=== PATIENT | female | born 1995 | race Caucasian/White ===

== ENCOUNTER 2018-02-19 08:51 | Emergency (ER) | payer OTHER ==
[2018-02-19 10:25] LABS: AMORPHOUS SEDIMENT RFX SMALL (NEGATIVE); BASO % 0.4 % (0.0-1.0); EOS # 0.3 10^3/uL (0.0-0.50); EOS % 3.1 % (0.0-3.0); HEMATOCRIT 35.2 % (36.0-47.0); HEMOGLOBIN 12.4 g/dl (12.0-15.5); IMMATURE GRANULOCYTE % 0.7 % (0-3.0); KETONE, URINE AUTO RFX NEGATIVE (NEGATIVE); LYMPH # 1.7 10^3/uL (1.5-6.5); LYMPH % 18.2 % (24.0-44.0); MEAN CORPUSCULAR HEMOGLOBIN 31.1 pg (27.0-33.0); MEAN CORPUSCULAR HGB CONC 35.2 g/dl (32.0-36.5); MEAN CORPUSCULAR VOLUME 88.2 fl (80.0-96.0); MONO # 0.5 10^3/uL (0.0-0.8); MONO % 5.3 % (0.0-5.0); MUCUS, URINE RFX LARGE (NEGATIVE); NEUTROPHILS # 6.9 10^3/uL (1.8-7.7); NEUTROPHILS % 72.3 % (36.0-66.0); NITRITE, URINE AUTO RFX NEGATIVE (NEGATIVE); PLATELET COUNT, AUTOMATED 265 10^3/uL (150-450); RBC, URINE AUTO RFX 4 /HPF (0-3); RED BLOOD COUNT 3.99 10^6/uL (4.00-5.40); RED CELL DISTRIBUTION WIDTH 13.8 % (11.5-14.5); SPECIFIC GRAVITY UR AUTO RFX 1.027 (1.002-1.035); SQUAM EPITHELIAL CELL UR AURFX 2 /HPF (0-6); WBC, URINE AUTO RFX 4 /HPF (0-3); WHITE BLOOD COUNT 9.5 10^3/uL (4.0-10.0)
[2018-02-19 10:26] LABS: LEUKOCYTE ESTERASE UR AUTO RFX TRACE (NEGATIVE)
[2018-02-19] MEDS: NS 1,000 ML IV (10:30)
== END 2018-02-19 11:22 | disposition home or self-care (01) ==
LOC: M ED 08:51
DX: O23.32 Infections of other parts of urinary tract in pregnancy, second trimester (principal); O99.512 Diseases of the respiratory system complicating pregnancy, second trimester; J45.909 Unspecified asthma, uncomplicated; Z3A.16 16 weeks gestation of pregnancy; Z88.0 Allergy status to penicillin; Z88.8 Allergy status to other drugs, medicaments and biological substances
CPT/HCPCS: 93976

== ENCOUNTER 2018-04-26 22:37 | Outpatient (CLI) | payer OTHER ==
[~2018-04-26] VITALS: Ht 160 cm; Wt 89.1 kg
[~2018-04-26 22:37] MED LIST: IRON27TA2 PO; MACR100C43 PO
[2018-04-27 00:19] LABS: APPEARANCE, URINE HAZY (CLEAR); BACTERIA, URINE AUTO 1+ (NEGATIVE); BILIRUBIN, URINE AUTO NEGATIVE (NEGATIVE); BLOOD, URINE BLOOD NEGATIVE (NEGATIVE); CALCIUM OXALATE CRYSTALS SMALL; COLOR, URINE YELLOW (YELLOW); GLUCOSE, URINE (UA) AUTO NEGATIVE (NEGATIVE); KETONE, URINE AUTO NEGATIVE (NEGATIVE); LEUKOCYTE ESTERASE, URINE AUTO NEGATIVE (NEGATIVE); MUCUS, URINE SMALL (NEGATIVE); NITRITE, URINE AUTO NEGATIVE (NEGATIVE); PROTEIN, URINE AUTO NEGATIVE (NEGATIVE); RBC, URINE AUTO 2 /HPF (0-3); SQUAMOUS EPITHELIAL CELL UR AU 1 /HPF (0-6); WBC, URINE AUTO 2 /HPF (0-3)
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
== END 2018-04-27 00:48 | disposition home or self-care (01) ==
LOC: M LDO 22:37
PROVIDERS: ATTEND Obstetrics & Gynecology
DX: O26.852 Spotting complicating pregnancy, second trimester (principal); W50.1XXA Accidental kick by another person, initial encounter; Z3A.25 25 weeks gestation of pregnancy; Y99.8 Other external cause status
CPT/HCPCS: 59025; 81001; 87086; G0378; G0463

== ENCOUNTER 2018-07-06 21:04 | Outpatient (CLI) | payer OTHER ==
[~2018-07-06] VITALS: Ht 160 cm; Wt 90.9 kg
[2018-07-06] MEDS ORDERED: PRENTAB9 PO (21:35)
[2018-07-06 21:38] VITALS: BP 118/70
--- NOTE | 2018-07-06 23:06 | IPNPDOC ---
Text Note Date of Service The patient was seen on 07/06/18. NOTE Triage Note Griselda is a 22yo with SIUP at approx 35wk by 16wk u/s who presents tonight for back/pelvic/upper leg pain that she states has been worsening over the last few weeks. She notes that lifting her 1 year old child exacerbates the discomfort and sometimes the pain is so severe that she has difficulty walking. No trauma. She has not taken anything for pain since tylenol "causes swelling". She notes that her mother is due to return to her home soon, so she won't have as much assistance with childcare, and is active duty- they share a car. She speculates that bedrest is the solution to her discomfort. Otherwise she f eels baby moving well and has had no ctx/LOF/vaginal bleeding. No f/c/n/v/SOB/CP. PMHx/ course significant for: hx of x2 (also one , patient is planning for TOLAC), hx of a PPH w/transfusion, hx PPD, hx of GHTN in prior , late entry to care/poor care due to non-compliance, anemia taking iron, obesity (starting BMI 31) Vitals wnl, afebrile General: WDWN, obese female in NAD, resting in bed comfortably Abdomen: soft, gravid, NTTP, no rebound/guarding Pain with palpation over center of pubic bone but no crepitus or palpable abnormality, no CVAT Extremities: no edema of BLE NST reactive with +accels, mod pedro pablo, no decels [place]: no ctx Assessment: Griselda is a 22yo with SIUP at approx 35wk with back/pelvic/upper leg pain related to normal discomforts of , 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 Reassuring status with benign exam and normal vitals. Plan: -Discussed these discomforts of have no cure other than eventual delivery in a month. Recommended warm baths/showers, back massage, yoga/stretching, avoid movements that exacerbate discomfort -Instructed patient to keep visit next week at 36wk -Continue to hydrate well -Return precautions discussed -Safe for discharge home Dr. Ilsa Garza MD A-FIB/MIGUEL A-FIB History Current/History of A-Fib/PAF?: No Current Oral Anticoagulant The: No VS,Fishbone, I+O VS, Fishbone, I+O Vital Signs Date Time Temp Pulse Resp B/P (MAP) Pulse Ox O2 Delivery O2 Flow Rate FiO2 07/06/18 21:38 97.4 114 18 118/70 (86) Ilsa Garza MD Jul 06, 2018 23:06
== END 2018-07-06 22:35 | disposition home or self-care (01) ==
LOC: M LDO 21:04
PROVIDERS: ATTEND Advanced Practice Midwife
DX: O26.893 Other specified pregnancy related conditions, third trimester (principal); Z3A.35 35 weeks gestation of pregnancy
CPT/HCPCS: 59025; G0378; G0463

== ENCOUNTER 2018-08-01 02:24 | Outpatient (CLI) | payer OTHER ==
[~2018-08-01] VITALS: Ht 160 cm; Wt 92.3 kg
[~2018-08-01 02:24] MED LIST changes: +PRENTAB9 PO
[2018-08-01 02:44] VITALS: BP 107/63
--- NOTE | 2018-08-01 09:14 | HPE ---
DATE OF ADMISSION: 08/01/2018 23-year-old, 5, para 3, abortio 1, last menstrual period (LMP) 11/02/2017, expected date of confinement (EDC) 08/09/2018 at 39 and 1 weeks of gestation, history of low back pain, seen previously for the same complaint on 07/06/2018. No vaginal bleeding. No loss. No contractions. Risk factors is she has a short interval gestation, previous section, successful vaginal after (), gestational hypertension, late entry to care, and ongoing issues with depression. Past History: 12/27/2011: 40 weeks, primary section, failure to dilate, gestational hypertension, hemorrhage, male, 8 pounds 7 ounces. 06/2013: 40 week, spontaneous vaginal delivery, female, 6 pounds 7 ounces. 2016: 6 weeks spontaneous . 07/2017: 40 week and 4 days, scheduled repeat section, male, 9 pounds. Labs: A+. HIV negative. Hepatitis negative. RPR negative. Rubella immune. Varicella equivocal. Urine negative. Gonorrhea and chlamydia negative. 1-hour glucose was 101. GBS was negative. Blood pressure is 107/63, respirations are 18, pulse 106, temperature 98.4. Urine os 1.010, pH 7, +1 leukocytes, rest is negative. She presently has a category one strip with no evidence of contractions, accelerations are noted, and moderate variability. She has low back pain similar to what she had before. We recommended some of the similar options that she had before - back massage, heat, yoga exercise, stretching exercises, positional change, and this will probably resolve after she delivers. The other question she was having is whether not she could be induced and definitely no induction was indicated and she was thinking of having elective repeat section. She has an appointment on Thursday with the provider to discuss that issue with them. In summary, we have a term gestation with low back pain similar to episodic issues before, positional change, undelivered, discharged, precautions given, and could return at anytime.
--- NOTE | 2018-08-03 18:56 | HPE ---
DATE OF ADMISSION: 08/06/2018 This lady is a 23-year-old 5, para 3, abortio 1. Last period was 11/02/2017, estimated date of delivery (EDC) is 08/09/2018 at 39 and 5 weeks of gestation who is having a history of chronic low back pain, previously the same complaint on previous admission. No vaginal bleeding, vaginal loss or contractions. She is booked for an elective repeat section on August 06, 2018. Her risk factors are she has had two previous sections, short interval gestation. The last section was July 24, 2017. She has a history of gestational hypertension, late entry to care, noncompliant care and a history of hemorrhage. PAST HISTORY: 12/27/2011 at 40 weeks had a primary section for failure to dilate with gestational hypertension, hemorrhage, live male infant 8 pounds 7 ounces. In 2013 at 40 weeks spontaneous vaginal delivery successful vaginal after () of a female 6 pounds 7 ounces. 2015 at 6 weeks had a spontaneous . July 24, 2017 less than a year ago at 40 weeks 4 days had scheduled repeat section because of macrosomia of a male 9 pounds. LABS: A+, HIV negative, hep negative, RPR negative, rubella immune. Varicella immune. Urine negative. Gonorrhea and chlamydia negative. 1-hour glucose was 101 and GBS was negative. PHYSICAL EXAMINATION: On examination today her blood pressure is 117/56, respirations are 18, pulse is 80. She has presently a category one strip with no evidence of contractions, moderate variability and normal baseline. The rest of the examination is unremarkable. She is normocephalic, atraumatic. Neck: Full range of motion. Pupils equal and reactive to light. Distal pulses symmetric. No evidence of deep venous thrombosis (DVT), pulmonary embolism (PE) or superficial phlebitis. Chest is clear bilaterally to bases. No wheezes or rhonchi. No CVA tenderness. Abdomen: Soft. Four quadrant bowel sounds are noted. Appropriate symphysis fundus height. She has a scar is noted. position is vertex. She has no rashes, lesions or pruritus. No arthralgia or myalgia. No complaint of joint pain. No complaint of cough, wheeze, shortness of breath or dyspnea on exertion. No infections. No bruising. No bleeding. Neuro complete. No incontinency, urgency or frequency. No nausea, vomiting, diarrhea or constipation. No diabetic issues. 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 No abnormal Pap smears. MEDICAL HISTORY: Unremarkable except for gestational hypertension. PAST SURGICAL HISTORY: section times two. FAMILY HISTORY: Noncontributory. She does not smoke, drink or abuse drugs. She is to a soldier. No domestic violence. ALLERGIES: She has multiple allergies specifically to TYLENOL, ASPIRIN and PENICILLIN which gives her hives and MUSHROOMS and ALMONDS which gives her anaphylaxis. Presently she is only taking vitamins. We discussed the risks and benefits of repeat section including, but not limited to hemorrhage, infection, perforation of organs, , reoperation, remote possibility of blood transfusion, remote possibility of hysterectomy, remote possibility of laceration and/or admission to NICU for reasons such as hypoglycemia or transition. The patient was interested in having a repeat section as she did have a short interval of less than 1 year for repeat section which would possibly put her at risk of rupture of the uterus with trial of labor after (TOLAC) or is higher. Also it would not be a prudent move to induce the lady who has had a previous section less than 1 year ago due to the higher risk of rupture. The patient and both expressed understanding. A 40 minute discussion and evaluation, examination and preop signature. The patient is comfortable with decision. All questions were answered. MELODY
== END 2018-08-01 04:00 | disposition home or self-care (01) ==
LOC: M LDO 02:24
PROVIDERS: ATTEND Obstetrics & Gynecology
DX: O26.893 Other specified pregnancy related conditions, third trimester (principal); M54.5 Low back pain; Z3A.39 39 weeks gestation of pregnancy
CPT/HCPCS: 59025; G0378; G0463

== ENCOUNTER 2018-08-06 04:41 | Inpatient (IN) | payer OTHER ==
[~2018-08-06] VITALS: Ht 160 cm; Wt 92.2 kg
[2018-08-06] VITALS (9 sets, daily range): BP systolic 95–111; BP diastolic 49–66
[2018-08-06] MEDS ORDERED: LR 1,000 ML IV ONE (05:15)
[2018-08-06] MEDS ORDERED: AZITHROMYCIN INJ 500 MG, VIAL MATE ADAPTER 1 EACH in D5W 250 ML IV ONE (05:30)
[2018-08-06] MEDS ORDERED: BUPIVACAINE HCL 0.25% 10 ML VIAL INFIL ONE (05:30)
[2018-08-06] MEDS ORDERED: CLINDAMYCIN 900 MG in APPROPRIATE DILUENT 1 EA IV ONE (05:30)
[2018-08-06] MEDS ORDERED: BICITRA 30ML SOLN UDC PO ONE (05:30)
[2018-08-06 05:53] LABS: MEAN CORPUSCULAR HEMOGLOBIN 27.9 pg (27.0-33.0); MEAN CORPUSCULAR HGB CONC 32.3 g/dl (32.0-36.5); MEAN CORPUSCULAR VOLUME 86.6 fl (80.0-96.0); PLATELET COUNT, AUTOMATED 273 10^3/uL (150-450); RED BLOOD COUNT 3.58 10^6/uL (4.00-5.40); WHITE BLOOD COUNT 7.5 10^3/uL (4.0-10.0)
[2018-08-06] MEDS ORDERED: LR 1,000 ML IV SCH ×3 (06:00→10:15)
[2018-08-06] MEDS ORDERED: OXYTOCIN INJ 10 UNITS/ML VIAL (J2590) As Ordered ONE (07:33)
[2018-08-06] MEDS ORDERED: METOCLOPRAMIDE INJ 10MG/2ML VIAL (J2765) As Ordered ONE (07:33)
[2018-08-06] MEDS ORDERED: ONDANSETRON 4MG/2ML VIAL (J2405) As Ordered ONE (07:33)
[2018-08-06] MEDS ORDERED: MORPHINE PRES-FREE INJ 10 MG/10 ML VIAL (J2274) As Ordered ONE (07:34)
[2018-08-06] MEDS ORDERED: METOCLOPRAMIDE INJ 10MG/2ML VIAL (J2765) IV PRN ×2 (08:00→10:15)
[2018-08-06] MEDS ORDERED: ONDANSETRON 4MG/2ML VIAL (J2405) IV PRN ×2 (08:00→10:15)
[2018-08-06] MEDS ORDERED: diphenhydrAMINE INJ 50MG/ML VIAL (J1200) IV PRN (08:00)
[2018-08-06] MEDS ORDERED: NALOXONE INJ 0.4 MG/1 ML VIAL (J2310) IV PRN ×2 (08:00)
[2018-08-06] MEDS ORDERED: NALBUPHINE HCL 10 MG/ML AMP (J2300) IV PRN (08:00)
[2018-08-06] MEDS: PRENATAL VITAMINS CHEWABLE TABLET PO SCH (09:00)
[2018-08-06 09:02] LABS: CORD GAS ABE A -5.5; CORD GAS ABE V -4.6; CORD GAS HCO3 A 23.5 MEQ/L; CORD GAS HCO3 V 22.7 MEQ/L; CORD GAS O2 SAT A 51.2 %; CORD GAS O2 SAT V 32.8 %; CORD GAS PCO2 V 50.1 mmHg; CORD GAS PH A 7.211 UNITS; CORD GAS PH V 7.274 UNITS; CORD GAS PO2 A 25.5 mmHg; CORD GAS PO2 V 16.7 mmHg; CORD GAS SBC A 18.9 MEQ/L; CORD GAS SBC V 19.1 MEQ/L; CORD GAS TCO2 A 25.4 MEQ/L; CORD GAS TCO2 V 24.2 MEQ/L
[2018-08-06] MEDS ORDERED: OXYTOCIN DRIP 30 UNITS in APPROPRIATE DILUENT 1 EA IV SCH (09:35)
[2018-08-06] MEDS ORDERED: OXYTOCIN INJ 10 UNITS/ML VIAL (J2590) IV ONE (09:45)
[2018-08-06] MEDS ORDERED: DOCUSATE SODIUM 100 MG CAP PO PRN (09:45)
[2018-08-06] MEDS ORDERED: METHYLERGONOVINE MALEATE 0.2 MG TAB PO PRN (09:45)
[2018-08-06] MEDS ORDERED: ANUSOL HC CREAM 30GM TOP PRN (09:45)
[2018-08-06] MEDS ORDERED: MEASLES,MUMPS,RUBELLA VACCINE INJ (MMR-II) (90707) SC SCH (09:45)
[2018-08-06] MEDS ORDERED: RHOGAM 300 MCG (1500 IU) INJ (J2790) IM SCH (09:45)
[2018-08-06] MEDS ORDERED: MOM 30ML SUSPENSION UDC PO PRN (09:45)
[2018-08-06] MEDS ORDERED: PERCOCET 5MG/325MG TAB PO PRN ×4 (09:45→10:30)
[2018-08-06] MEDS ORDERED: OXYTOCIN 30 UNITS IN 0.9% NaCl 500ML IV BAG (J2590) As Ordered ONE (09:59)
[2018-08-06] MEDS ORDERED: MEPERIDINE INJ 25 MG/ML VIAL (J2175) IV PRN (10:15)
[2018-08-06] MEDS ORDERED: fentaNYL 100 MCG/2 ML INJECTION (J3010) IV PRN (10:15)
--- NOTE | 2018-08-06 12:00 | IPN ---
DATE: 08/06/2018 This patient requested permanent sterilization with satisfied parity as the reason. We discussed other options besides permanent sterilization including Depo-Provera, Mirena IUCD, copper IUCD, control pills, Nexplanon, condoms, foam or a combination there of. The patient was adamant that she definitely does want to have any more children and therefore we discussed the risks and benefits of tubal ligation at section, including failure rate which less than 1% which may result in an ectopic or an intrauterine . Also, the side effects being post tubal ligation syndrome which would affect her periods, increasing dysmenorrhea or menorrhagia. The patient and expressed understanding of the above. Again, declined alternative methods. The patient signed the consent form.
[2018-08-06] MEDS: KETOROLAC 30 MG/ML VIAL (J1885) IV SCH ×3 (12:31→23:34)
[2018-08-06] MEDS ORDERED: METOCLOPRAMIDE INJ 10MG/2ML VIAL (J2765) IV ONE (15:00)
[2018-08-06] MEDS: LR 1,000 ML IV SCH ×2 (15:13→23:23)
[2018-08-07 02:05] VITALS: BP 125/58
[2018-08-07] MEDS: KETOROLAC 30 MG/ML VIAL (J1885) IV SCH (05:43)
[2018-08-07 06:23] VITALS: BP 112/57
[2018-08-07] MEDS: LR 1,000 ML IV SCH (06:48)
[2018-08-07 07:01] LABS: HEMATOCRIT 23.4 % (36.0-47.0); MEAN CORPUSCULAR HEMOGLOBIN 26.3 pg (27.0-33.0); MEAN CORPUSCULAR HGB CONC 30.3 g/dl (32.0-36.5); MEAN CORPUSCULAR VOLUME 86.7 fl (80.0-96.0); PLATELET COUNT, AUTOMATED 172 10^3/uL (150-450); WHITE BLOOD COUNT 8.5 10^3/uL (4.0-10.0)
[2018-08-07 07:16] LABS: HEMOGLOBIN 7.1 g/dl (12.0-15.5)
[2018-08-07] MEDS ORDERED: PRENATAL VITAMINS CHEWABLE TABLET PO SCH ×2 (09:00)
[2018-08-07] MEDS: PRENATAL VITAMINS CHEWABLE TABLET PO SCH (09:00)
[2018-08-07 10:00] VITALS: BP 112/56
[2018-08-07 14:00] VITALS: BP 129/58
[2018-08-07] MEDS: IBUPROFEN 800 MG TAB PO SCH ×2 (14:21→21:22)
--- NOTE | 2018-08-07 15:33 | IPN ---
DATE: 08/06/2018 This lady is a 20-year-old 5, now para 4, who was admitted for repeat section. She had a repeat section of a live- female , 8 pounds 1 ounce, 3660 grams, scores of 7 and 9 at one and five minutes, respectively. Arterial pH 7.21, base excess -5.5, venous pH 7.27, base excess -4.6. On her first day we discussed phlebitis, cystitis, mastitis, metritis, cellulitis, diet, exercise, pain management, perineal, breast, and wound care. Presently she is struggling with breast-feeding; however, she is going to get some assistance with a consultant in ergonomics and safety. She is voiding well, passing gas. Her blood pressure today is 112/57, respirations are 16, pulse 74, and temperature 97.2. She had initial episode of chest pain, which we laid down for anxiety, as her oxygen saturations were normal, and her vital signs were stable. Her admitting hemoglobin was 10.0, hematocrit 31.0, platelets are 273. day #1 hemoglobin is pending. The rest examination unremarkable. Normocephalic, atraumatic. Neck: Full range of motion. Pupils equal and reactive to light. Distal pulses symmetric. No evidence of deep vein thrombosis (DVT), pulmonary embolism (PE), or superficial phlebitis. Chest is clear bilaterally to bases. No wheezes or rhonchi. No costovertebral angle (CVA) tenderness. Abdomen: Soft uterus 2 below. Lochia is moderate. Four-quadrant bowel sounds. Incision is clean and dry. PLAN OF MANAGEMENT: Send her home with medications tomorrow. A 2-week incision check, 6-week check.
[2018-08-07 18:00] VITALS: BP 114/53
[2018-08-07 21:41] VITALS: BP 115/59
[2018-08-08 02:01] VITALS: BP 122/73
[2018-08-08] MEDS: IBUPROFEN 800 MG TAB PO SCH ×2 (05:51→14:18)
[2018-08-08 05:59] VITALS: BP 115/56
--- NOTE | 2018-08-08 06:35 | DS.PDOC ---
Discharge Summary General Date of Admission August 06, 2018 at 04:41 Date of Discharge Aug 08, 2018 Discharge Summary COMPLICATIONS/CHIEF COMPLAINT: History Prior . HOSPITAL COURSE: Ms. Veliz is a 23 yo G5 now P3 who was admitted on 06Aug2018 for a planned RLTCS. The procedure was uncomplicated. Her course has been unremarkable. On her day of discharge she met all appropriate discharge criteria. She was ambulating, voiding, tolerating a regular diet, had minimal lochia and her pain was well controlled with PO medications. DISCHARGE MEDICATIONS: Please see below. ALLERGIES: Please see below. PHYSICAL EXAMINATION ON DISCHARGE: VITAL SIGNS: Please see below. GENERAL: AAOX3, sitting up in bed, NAD ABDOMINAL EXAMINATION: Fundus firm at U-2. No fundal tenderness. Incision clean/dry/intact. EXTREMITIES: No edema PSYCHIATRIC EXAMINATION: Affect appropriate. LABORATORY DATA: Please see below. ACTIVITY: Pelvic rest for 6 weeks. No heavy lifting. DIET: Regular DISCHARGE PLAN: Discharge home DISPOSITION: Discharge home on 08Aug2018. DISCHARGE INSTRUCTIONS: 1. pelvic rest for 6 weeks. 2. no heavy lifting for 6 weeks ITEMS TO FOLLOWUP ON ON OUTPATIENT: 1. Incision check in 2 weeks. 2. visit in 6 weeks DISCHARGE CONDITION: Stable. TIME SPENT ON DISCHARGE: Greater than 20 minutes. Isaías Adhikari DO Vital Signs/I&Os Vital Signs Date Time Temp Pulse Resp B/P (MAP) Pulse Ox O2 Delivery O2 Flow Rate FiO2 08/08/18 05:59 97.4 85 17 115/56 (75) 98 Discharge Medications Scheduled No.137/Iron/Folic Acd ( Vitamin Tablet) 1 Each Tablet, 1 TAB PO DAILY, (Reported) Allergies Coded Allergies: almond (Verified Allergy, Severe, THROAT SWELLING, 08/06/18) bee pollen (Verified Allergy, Severe, SWELLING, 08/06/18) mushroom (Verified Allergy, Severe, THROAT SWELLING, 08/06/18) acetaminophen (Verified Allergy, Intermediate, HIVES - CAN TAKE PERCOCET, 08/06/18) Penicillins (Verified Allergy, Mild, BECOMES RED, 08/04/18) aspirin (Verified Allergy, Unknown, HIVES - CAN TAKE TORADOL AND IBUPROFEN, 08/06/18) ISAÍAS ADHIKARI DO Aug 08, 2018 06:34
[2018-08-08] MEDS ORDERED: IBUP80TA PO (06:38)
[2018-08-08] MEDS ORDERED: PERCOCET PO (06:38)
[2018-08-08] MEDS: PRENATAL VITAMINS CHEWABLE TABLET PO SCH (08:33)
[2018-08-08] MEDS ORDERED: ANUS2.5C2 TOP (10:24)
[2018-08-08] MEDS ORDERED: COLA100C5 PO (10:24)
== END 2018-08-08 14:25 | disposition home or self-care (01) | DRG 785 ==
LOC: M LDI 04:41 → M OBS 11:01
PROVIDERS: ADMIT Obstetrics & Gynecology; ATTEND Obstetrics & Gynecology
PROC: 0UL70DZ Occlusion of Bilateral Fallopian Tubes with Intraluminal Device, Open Approach (ICD-10-PCS; 2018-08-06)
PROC: 10D00Z1 Extraction of Products of Conception, Low, Open Approach (ICD-10-PCS; principal; 2018-08-06 07:30)
DX: O34.211 Maternal care for low transverse scar from previous cesarean delivery (principal); Z37.0 Single live birth; Z3A.39 39 weeks gestation of pregnancy; Z30.2 Encounter for sterilization

== ENCOUNTER 2018-09-21 14:02 | Emergency (ER) | payer OTHER ==
[~2018-09-21] VITALS: Ht 160 cm; Wt 82.9 kg
[~2018-09-21 14:02] MED LIST changes: +ANUS2.5C2 TOP; +COLA100C5 PO; +IBUP80TA PO; +PERCOCET PO
[2018-09-21] MEDS ORDERED: IRON240T PO (14:27)
[2018-09-21 15:30] VITALS: BP 108/62
== END 2018-09-21 15:37 | disposition home or self-care (01) ==
LOC: M ED 14:02
DX: F43.10 Post-traumatic stress disorder, unspecified (principal); Z62.810 Personal history of physical and sexual abuse in childhood; F99 Mental disorder, not otherwise specified; J45.909 Unspecified asthma, uncomplicated; Z88.0 Allergy status to penicillin; Z88.6 Allergy status to analgesic agent; Z91.030 Bee allergy status; Z91.018 Allergy to other foods

== ENCOUNTER 2020-02-06 10:56 | Emergency (ER) | payer OTHER ==
[~2020-02-06] VITALS: Ht 160 cm; Wt 89.4 kg
[~2020-02-06 10:56] MED LIST changes: +IRON240T PO
[2020-02-06] MEDS ORDERED: VITA250T4 PO (11:18)
[2020-02-06 12:09] LABS: BASO # 0.1 10^3/uL (0.0-0.2); BASO % 0.7 % (0.0-1.0); EOS # 0.9 10^3/uL (0.0-0.5); EOS % 11.2 % (0.0-3.0); HEMOGLOBIN 10.2 g/dl (12.0-15.5); LYMPH # 1.9 10^3/uL (1.5-5.0); LYMPH % 23.3 % (24.0-44.0); MEAN CORPUSCULAR HEMOGLOBIN 24.5 pg (27.0-33.0); MEAN CORPUSCULAR VOLUME 81.5 fl (80.0-96.0); MONO # 0.5 10^3/uL (0.0-0.8); MONO % 5.6 % (0.0-5.0); NEUTROPHILS # 4.9 10^3/uL (1.5-8.5); NEUTROPHILS % 58.7 % (36.0-66.0); PLATELET COUNT, AUTOMATED 429 10^3/uL (150-450); RED BLOOD COUNT 4.17 10^6/uL (4.00-5.40); WHITE BLOOD COUNT 8.3 10^3/uL (4.0-10.0)
[2020-02-06 12:34] LABS: ALBUMIN 3.6 GM/DL (3.2-5.2); ALT/SGPT 17 U/L (12-78); BILIRUBIN,DIRECT 0.1 MG/DL (0.0-0.2); BILIRUBIN,TOTAL 0.3 MG/DL (0.2-1.0); BLOOD UREA NITROGEN 12 MG/DL (7-18); CALCIUM LEVEL 8.6 MG/DL (8.5-10.1); CARBON DIOXIDE LEVEL 25 MEQ/L (21-32); CHLORIDE LEVEL 109 MEQ/L (98-107); CREATININE FOR GFR 0.78 MG/DL (0.55-1.30); GLOMERULAR FILTRATION RATE > 60.0 (>60); GLUCOSE, FASTING 89 MG/DL (70-100); LIPASE 121 U/L (73-393); POTASSIUM SERUM 4.3 MEQ/L (3.5-5.1); SODIUM LEVEL 139 MEQ/L (136-145); TOTAL PROTEIN 6.9 GM/DL (6.4-8.2)
[2020-02-06 12:35] LABS: HCG, SERUM QUALITATIVE NEGATIVE (NEGATIVE)
[2020-02-06] MEDS ORDERED: MORPHINE 4 MG/ML 1ML VIAL/SYRINGE (J2270) IV PRN (13:30)
--- NOTE | 2020-02-06 14:08 | REP ---
INDICATION: LUQ and LLQ abd pain. COMPARISON: None. TECHNIQUE: Transabdominal scanning is performed. Patient declined transvaginal imaging.. FINDINGS: Uterine dimensions are normal at 13.0 x 4.7 x 8.0 cm. Endometrial echo is 0.9 cm thick and centrally placed. No free fluid is seen in the cul-de-sac. Visualized bladder hannon are smooth. IUD is noted in position in the uterine endometrium. The right ovary has dimensions of 3.8 x 1.7 x 2.3 cm. It's Doppler flow is normal with a resistive index of . The left ovary dimensions are normal as well at 3.7 x 1.9 x 3.5 cm. It's Doppler flow was normal with resistive index of . IMPRESSION: Normal pelvic sonography. IUD in place. No abnormality noted. <Electronically signed by Earl Gates > 02/06/20 [id number]
[2020-02-06] MEDS ORDERED: GI COCKTAIL 50ML BTL(HYOSCYAMINE/MAALOX/LIDOCAINE VISCOUS)(1:3:1) PO ONE (14:45)
[2020-02-06 15:03] LABS: CK-MB VALUE MASS < 1.0 NG/ML (<3.6); CPK CREATINE PHOSPHOKINASE 122 U/L (26-192); MB/CK RELATIVE INDEX 0.82 (< OR =4); TROPONIN I < 0.02 NG/ML (< 0.10)
--- NOTE | 2020-02-06 15:08 | REP ---
INDICATION: r/o nephrolithiasis, LUQ and LLQ abd pain COMPARISON: None. TECHNIQUE: Helical scanning is acquired in 4 mm axial images were reformatted. Coronal and sagittal MPR images were generated and reviewed. FINDINGS: Preliminary digital clothing sorter radiograph shows an unremarkable bowel gas pattern. The lung bases are clear on axial CT images. No pleural effusion or upper abdominal ascites is seen. The liver and the spleen are normal in size homogeneous in texture. The adrenal glands are normal in appearance. No abnormality is noted in the pancreas or the gallbladder. A normal appendix is seen in the right lower quadrant. The kidneys are morphologically intact. There is no evidence of intrarenal nephrolithiasis or hydronephrosis. No ureteral calculus is seen. No bladder calculus is observed. The uterus is enlarged and contains an IUD in good position. Uterine dimensions are 13.6 cm in length by 6.0 cm anterior-posterior by 8.7 cm right to left. No ovarian pathology is appreciated. Small and large bowel loops are unremarkable. No abdominal wall defect is seen. Bone window settings show no bony destructive lesion. IMPRESSION: Moderate uterine enlargement with IUD in good position. No urinary tract calculus or hydronephrosis seen. Normal appendix. <Electronically signed by Earl Gates > 02/06/20 [id number]
[2020-02-06] MEDS ORDERED: KETOROLAC 30 MG/ML 1ML VIAL IV ONE (15:30)
[2020-02-06] MEDS ORDERED: oxyCODONE 5MG TAB PO ONE (15:30)
[2020-02-06 16:59] VITALS: BP 108/67
--- NOTE | 2020-02-06 19:14 | ECGEPIP ---
[facility] - ED Test Date: 2020-02-06 Pat Name: LOUIS CRUZ Department: Room: - Gender: Female Network Cabler: MARY : 1995 Requested By: MIGUELITO CAMPOVERDE Order Number: [id number] Reading MD: Edison Porter Measurements Intervals [place] Rate: 63 P: 50 GA: 184 QRS: 47 QRSD: 93 T: 50 QT: 417 QTc: 428 Interpretive Statements SINUS RHYTHM WITH OCCASIONAL SUPRAVENTRICULAR PREMATURE COMPLEXES POSSIBLE INCOMPLETE RIGHT BUNDLE BRANCH BLOCK NO PRIORS FOR COMPARISON Electronically Signed on 02-06-2020 19:14:47 EST by Edison Porter
== END 2020-02-06 17:01 | disposition home or self-care (01) ==
LOC: M ED 10:56
DX: R10.32 Left lower quadrant pain (principal); R10.12 Left upper quadrant pain; N85.2 Hypertrophy of uterus; R11.0 Nausea; R07.9 Chest pain, unspecified; R06.02 Shortness of breath; J45.909 Unspecified asthma, uncomplicated; F33.9 Major depressive disorder, recurrent, unspecified; Z97.5 Presence of (intrauterine) contraceptive device

== ENCOUNTER 2020-05-01 05:46 | Emergency (ER) | payer OTHER ==
[~2020-05-01] VITALS: Ht 160 cm; Wt 90.5 kg
[~2020-05-01 05:46] MED LIST changes: +VITA250T4 PO
--- OUTSIDE RECORDS SUMMARY | 2020-05-01 05:51 | CCD ---
Author Author [facility] Address Unknown Phone Unavailable Support Name Relationship Address Phone UE Next Of Kin Unknown Unavailable RENA CRUZ Next Of Kin [id number] [place], [place] [id number] Re-disclosure Warning The records that you are about to access may contain information from federally-assisted alcohol or drug abuse programs. If such information is present, then the following federally mandated warning applies: This information has been disclosed to you from records protected by federal confidentiality rules (42 CFR part 2). The federal rules prohibit you from making any further disclosure of this information unless further disclosure is expressly permitted by the written consent of the person to whom it pertains or as otherwise permitted by 42 CFR part 2. A general authorization for the release of medical or other information is NOT sufficient for this purpose. The Federal rules restrict any use of the information to criminally investigate or prosecute any alcohol or drug abuse patient.The records that you are about to access may contain highly sensitive health information, the redisclosure of which is protected by Article 27-F of the [facility] Public Health law. If you continue you may have access to information: Regarding HIV / AIDS; Provided by facilities licensed or operated by the [facility] Office of Mental Health; or Provided by the [facility] Office for People With Developmental Disabilities. If such information is present, then the following [facility] mandated warning applies: This information has been disclosed to you from confidential records which are protected by state law. State law prohibits you from making any further disclosure of this information without the specific written consent of the person to whom it pertains, or as otherwise permitted by law. Any unauthorized further disclosure in violation of state law may result in a fine or senior care sentence or both. A general authorization for the release of medical or other information is NOT sufficient authorization for further disc losure. Insurance Providers Payer name Policy type / Coverage type Policy ID Covered republican ID Covered republican's relationship to currie Policy Currie Plan Information [facility] HU[employer] [id number] [facility] [id number] [place] [id number] S [id number] [facility] [id number] Results ID Date Data Source [id number] 03/20/2020 10:46:00 AM EST [facility] Name Value Range Interpretation Code Description Data Lae rce(s) Supporting Document(s) SARS coronavirus 2 RNA Not Detected [facility] This lab was ordered by [facility] Laboratory and reported by [facility]. Procedure
[2020-05-01] MEDS ORDERED: NS 1,000 ML IV ONE (06:15)
[2020-05-01 06:53] LABS: BASO # 0.1 10^3/uL (0.0-0.2); BASO % 0.5 % (0.0-1.0); EOS # 0.6 10^3/uL (0.0-0.5); EOS % 6.5 % (0.0-3.0); HEMATOCRIT 36.3 % (36.0-47.0); HEMOGLOBIN 10.9 g/dl (12.0-15.5); LYMPH # 2.2 10^3/uL (1.5-5.0); LYMPH % 22.7 % (24.0-44.0); MEAN CORPUSCULAR HEMOGLOBIN 24.8 pg (27.0-33.0); MEAN CORPUSCULAR VOLUME 82.7 fl (80.0-96.0); MONO # 0.7 10^3/uL (0.0-0.8); MONO % 6.8 % (2.0-8.0); NEUTROPHILS # 6.1 10^3/uL (1.5-8.5); NEUTROPHILS % 62.7 % (36.0-66.0); PLATELET COUNT, AUTOMATED 414 10^3/uL (150-450); RED BLOOD COUNT 4.39 10^6/uL (4.00-5.40); WHITE BLOOD COUNT 9.8 10^3/uL (4.0-10.0)
--- OUTSIDE RECORDS SUMMARY | 2020-05-01 07:06 | CCD ---
Author Author [facility] Address Unknown Phone Unavailable Support Name Relationship Address Phone UE Next Of Kin Unknown Unavailable RENA CRUZ Next Of Kin [id number] [place], [place] [id number] Re-disclosure Warning The records that you are [...] is protected by Article 27-F of the [facility] Public Health law. If you continue you may have access to information: Regarding HIV / AIDS; Provided by facilities licensed or operated by the [facility] Office of Mental Health; or Provided by the [facility] Office for People With Developmental Disabilities. If such information is present, then the following [facility] mandated warning applies: This information has [...] law may result in a fine or mcc sentence or both. A general authorization for the release of medical or other information is NOT sufficient authorization for further disc losure. Insurance Providers Payer name Policy type / Coverage type Policy ID Covered republican ID Covered republican's relationship to currie Policy Currie Plan Information [facility] HUMANA [id number] [facility] [id number] [place] [id number] S [id number] [facility] [id number] 2 [id number] Results ID Date Data Source [id number] 03/20/2020 10:46:00 AM EST [facility] Name Value Range Interpretation Code Description Data Ale rce(s) Supporting Document(s) SARS coronavirus 2 RNA Not Detected [facility] This lab was ordered by [facility] Laboratory and reported by [facility]. Procedure
[2020-05-01 07:13] LABS: INR 1.02; PARTIAL THROMBOPLASTIN TIME 28.6 SECONDS (24.2-38.5); PROTHROMBIN TIME 13.6 SECONDS (12.5-14.3)
[2020-05-01 07:14] LABS: BLOOD UREA NITROGEN 16 MG/DL (7-18); CALCIUM LEVEL 8.4 MG/DL (8.5-10.1); CARBON DIOXIDE LEVEL 24 MEQ/L (21-32); CHLORIDE LEVEL 106 MEQ/L (98-107); GLOMERULAR FILTRATION RATE > 60.0 (>60); GLUCOSE, FASTING 91 MG/DL (70-100); SODIUM LEVEL 139 MEQ/L (136-145)
--- NOTE | 2020-05-01 07:19 | REPVR ---
PROCEDURE INFORMATION: Exam: US Duplex Artery or Vein of the Abdominal and/or Reproductive Organs, Limited Ovaries Exam date and time: 05/01/2020 6:50 AM Age: 24 years old Clinical indication: Menstruation abnormalities; Irregular menstruation; Additional info: Irregular bleeding, currently heavy has iud TECHNIQUE: Imaging protocol: Real-time duplex ultrasound scan of the arterial or venous flow with gonzales scale, color Doppler flow and spectral waveform analysis with image documentation. Limited duplex exam focused on the ovaries. Duplex images required to evaluate for torsion and other vascular conditions. COMPARISON: US PELVIC NON-OB COMPLETE 02/06/2020 1:46 PM FINDINGS: Right adnexa: Normal duplex of the ovary. Normal Doppler waveforms and color flow. No evidence of ovarian torsion. Arterial and venous blood flow seen to the right ovary. Right ovarian peak systolic velocity of 12.5 centimeter/second is measured with resistive index of 0.42. Left adnexa: Normal duplex of the ovary. Normal Doppler waveforms and color flow. No evidence of ovarian torsion. Arterial and venous blood flow seen to the left ovary. Left ovarian peak systolic velocity of 7.5 centimeter/second is measured with resistive index of 0.62. IMPRESSION: Normal duplex of the ovaries with no evidence of ovarian torsion. PROCEDURE INFORMATION: Exam: US Pelvis Complete, Transabdominal and US Pelvis, Transvaginal Exam date and time: 05/01/2020 6:50 AM Age: 24 years old Clinical indication: Menstruation abnormalities; Irregular menstruation; Additional info: Irregular bleeding, currently heavy has iud TECHNIQUE: Imaging protocol: Real-time transabdominal and transvaginal pelvic ultrasound (complete) with image documentation. Transvaginal imaging was used for better evaluation of the endometrium, adnexa, and/or cervix. COMPARISON: US PELVIC NON-OB COMPLETE 02/06/2020 1:46 PM FINDINGS: Uterus/cervix: The uterus measures 12.8 x 8.1 x 5.2 cm. There is no focal uterine mass. The endometrium is thickened with heterogeneous material measuring up to 1.7 cm with IUD seen in place. Right adnexa: The right ovary measures 4.1 x 3.0 x 3.2 cm in appears unremarkable. Left adnexa: The left ovary measures 3.1 x 2.9 x 2.2 cm in appears unremarkable. Intraperitoneal space: Small free pelvic fluid is seen. Urinary bladder: Normal. IMPRESSION: IUD in place with nonspecific thickened heterogeneous endometrium measuring up to 1.7 cm. This could be secondary to underlying blood given the history of active heavy menstrual bleeding at this time however underlying endometrial pathology cannot be excluded. Follow-up is recommended. Electronically signed by: Brandin Craft On 05/01/2020 07:19:24 AM
[2020-05-01 07:30] LABS: HCG, SERUM QUALITATIVE NEGATIVE (NEGATIVE)
[2020-05-01 08:00] VITALS: BP 116/62
[2020-05-01] MEDS ORDERED: FERR325T3 PO (08:05)
== END 2020-05-01 08:18 | disposition home or self-care (01) ==
LOC: M ED 05:46
DX: N93.8 Other specified abnormal uterine and vaginal bleeding (principal); D50.9 Iron deficiency anemia, unspecified; J45.909 Unspecified asthma, uncomplicated; Z97.5 Presence of (intrauterine) contraceptive device; Z88.0 Allergy status to penicillin; Z88.8 Allergy status to other drugs, medicaments and biological substances; Z79.899 Other long term (current) drug therapy

== ENCOUNTER 2020-06-13 07:36 | Emergency (ER) | payer OTHER ==
[~2020-06-13] VITALS: Ht 160 cm; Wt 91.0 kg
[~2020-06-13 07:36] MED LIST changes: +FERR325T3 PO
[2020-06-13] MEDS ORDERED: ALL10TAB2 PO (10:43)
[2020-06-13 10:51] VITALS: BP 143/63
== END 2020-06-13 11:10 | disposition home or self-care (01) ==
LOC: M ED 07:36
DX: R05 Cough (principal); Z88.0 Allergy status to penicillin; Z88.6 Allergy status to analgesic agent; Z91.030 Bee allergy status; Z91.09 Other allergy status, other than to drugs and biological substances